=== PATIENT | female | born 1990 | race Caucasian/White ===

== ENCOUNTER 2024-11-09 08:16 | Emergency (ER) | payer OTHER, SELFPAY ==
[2024-11-09 08:17] VITALS: BMI 48.2
[2024-11-09 08:30] VITALS: BP 146/104; PULSE 115; RESP 18; TEMP 37.4; O2SAT 97
--- NOTE | 2024-11-09 08:30 | XR_ITS ---
Examination: CT lumbar spine, without contrast. 2-D sagittal reconstructions. 2-D coronal reconstructions. 3-D reconstructions. Date and time of exam:November 09, 2024 1018 hrs. Indications: Lower back pain radiating to the left leg beginning 3 months ago CTDI: vol (mGy):72.3 DLP: (mGycm):2407 Technique: Multiple 1.25 mm axial sections of the lumbar spine without intravenous contrast have been obtained. 2-D sagittal and coronal reconstructions have been obtained. 3-D reconstructions have been obtained. Low dose protocols were performed. One or more of the following dose reduction techniques were used; automated exposure control, adjustment of the mA and/or KV according to patient size, use of iterative reconstruction technique. Findings: Adequate alignment lumbar vertebral bodies No lumbar fracture No spondylolisthesis Moderate to advanced disc narrowing L5-S1 L5-S1 no disc protrusion L4-L5 large, 10 mm central left paracentral disc bulge severely indenting the thecal sac and markedly displacing the left L5 nerve root More cephalad levels unremarkable Impression: L4-L5 large, 10 mm, central left paracentral disc bulge severely indenting the thecal sac and markedly displacing the left L5 nerve root
[2024-11-09] MEDS: KETOROLAC INJ 30 MG/ML VIAL IM (08:43)
[2024-11-09] MEDS: DIAZEPAM 5 MG TABLET 10 MG PO (08:43)
[2024-11-09 09:53] LABS: HCG Qualitative,Urine Negative
--- NOTE | 2024-11-09 11:17 | EDNOTE_ITS ---
ED Back Injury Pain RME/HPI General Chief Complaint: Back Pain/Injury Stated Complaint: LOWER BACK PAIN Time Seen by Provider: 11/09/24 08:18 Arrival date/time: 11/09/24 08:16 34-year-old female presents with complaints of acute on chronic back pain patient reports that she has pain left side of her back mostly radiating down her left leg. Patient ports no saddle anesthesia no loss of bowel or bladder Limitations: no limitations Related Data Previous Rx's ?Medication ?Instructions ?Recorded cyclobenzaprine 10 mg tablet 10 mg PO TID PRN muscle s pasm 10 11/09/24 days #30 tab-caps ibuprofen 800 mg tablet 800 mg PO TID PRN pain #30 t abs 11/09/24 Allergies Allergy/AdvReac Type Severity Reaction Status Date / Time No Known Allergies Allergy Verified 11/09/24 08:17 Review of Systems Review of Systems Systems Reviewed: All systems reviewed, normal except as documented Constitutional Constitutional: Reports system reviewed and no additional complaints, except as documented, Denies fever(s) and Denies headache(s) Eyes Eyes: Reports system reviewed and no additional complaints, except as documented and Denies blurry vision ENT Ears, Nose, Mouth, and Throat: Reports system reviewed and no additional complaints, except as documented, Denies headache(s), Denies nasal congestion and Denies nasal discharge Cardiovascular Cardiovascular: Reports system reviewed and no additional complaints, except as documented, Denies chest pain and Denies dyspnea Respiratory Respiratory: Reports system reviewed and no additional complaints, except as documented, Denies chest congestion, Denies cough and Denies dyspnea Gastrointestinal Gastrointestinal: Reports system reviewed and no additional complaints, except as documented and Denies abdominal pain Musculoskeletal Musculoskeletal: Reports system reviewed and no additional complaints, except as documented, Reports back pain, Denies numbness, Reports radiating pain into limb, Denies stiffness and Denies tingling Integumentary/Breasts Skin/Breast: Reports system reviewed and no additional complaints, except as documented and Denies rash Neurologic Neurologic: Reports system reviewed and no additional complaints, except as documented, Reports as per HPI, Denies headache(s), Denies numbness and Denies tingling Past Medical History Social History SMOKING STATUS: Never smoker ED Exam General Limitations: Present no limitations General appearance: Present alert and in no apparent distress Head Head exam: Present atraumatic Eye Eye exam: Present normal appearance, PERRL and EOMI; Absent conjunctival injection ENT ENT exam: Present normal exam, normal oropharynx and mucous membranes moist Neck Neck exam: Present normal inspection, full ROM and trachea midline Chest Chest inspection: Present normal inspection and symmetric chest wall rise Respiratory Respiratory exam: Present normal lung sounds bilaterally Cardiovascular Cardiovascular exam: Present regular rate, normal rhythm and normal heart sounds Abdominal Exam Abdominal exam: Present soft and normal bowel sounds; Absent distention, tenderness, guarding, rebound or rigidity Extremities Exam Extremities exam: Present normal inspection and full ROM Back Exam Back exam: Present normal inspection, full ROM, tenderness, muscle spasm and paraspinal tenderness; Absent CVA tenderness (R) or CVA tenderness (L) Neurological Exam Neurological exam: Present alert, oriented X3 and CN II-XII intact Psychiatric Psychiatric exam: Present normal affect and normal mood Skin Skin exam: Present warm, dry, intact and normal color Course Quality Measures none Orders Category Date Time Status CT lumbar spine wo con Stat Exams 11/09/24 08:30 Completed HCG Qualitative,Urine Stat Lab 11/09/24 09:40 Completed Diazepam [Valium] Med 11/09/24 08:30 Discontinued 10 mg PO X1 ONE Ketorolac Inj [Toradol Inj] Med 11/09/24 08:30 Discontinued 30 mg IM X1 ONE Vital Signs Vital signs: Vital Signs Temperature 99.4 F 11/09/24 08:30 Pulse Rate 115 H 11/09/24 08:30 Respiratory Rate 18 11/09/24 08:30 Blood Pressure 146/104 H 11/09/24 08:30 Pulse Oximetry (%) 97 11/09/24 08:30 Oxygen Delivery Method Room Air 11/09/24 08:30 o2 satv 97% r.a wnl Back Pain / Injury MDM Narrative MDM Narrative:: 34-year-old female presents with complaints of acute on chronic back pain patient reports that she has pain left side of her back mostly radiating down her left leg. Patient ports no saddle anesthesia no loss of bowel or bladder On exam patient well-appearing patient does not appear ill or toxic in no acute distress Imaging and lab work obtained patient was given a copy of her CT report and we discussed the findings. Explained to the patient she is to have an outpatient MRI and referral to specialist patient states understanding I explained to the patient if she develops severe numbness tingling or any worsening of symptoms to return immediately for further evaluation patient states understanding Patient has no abnormal neurological findings patient walks with steady gait Patient data External records reviewed:: [facility] previous records Clinical information provided by:: patient Social determinants that could affect healthcare access:: none Patient has the following chronic illnesses:: None How is presenting disease/condition affected by chronic disease/condition?: no chronic disease Evaluation data The following diagnostics were reviewed and interpreted by me:: lab results and radiology exam(s) Lab and/or radiology exams considered but not ordered:: Labs radiology obtain Interpretation Summary: Reviewed by me Medications / Prescriptions Medications or Prescriptions considered but not ordered:: Given Medication administrations:: Medication Administration History Discontinued Medications Diazepam (Diazepam 5 Mg Tablet) 10 mg PO X1 ONE Stop: 11/09/24 08:31 Last Admin: 11/09/24 08:43 Dose: 10 mg Documented By: DO Ketorolac Tromethamine (Ketorolac Inj 30 Mg/Ml Vial) 30 mg IM X1 ONE Stop: 11/09/24 08:31 Last Admin: 11/09/24 08:43 Dose: 30 mg Documented By: DO Given Consultations Consultation(s) initiated? (list below): No Diagnosis Differential diagnosis back pain/injury: lumbar radiculopathy, sciatica and strain of lumbar region Most likely diagnosis given after review of the tests above:: Back pain Admission Indicated Admission indicated?: not indicated Admission Request Was there a request for admission?: No Disposition Plan Disposition Plan: Discharge Discharge Attestation Discharge Attestation: The patient and all family members were given an opportunity to ask questions and understood the discharge instructions. Discharge instructions specifically effects, indications for sooner follow up or return to the emergency department, and the expected course of current diagnosis. Patient condition: Stable Discharge Plan Plan Patient Disposition: HOME (Self Care) Discharge Disposition comment: Stable Prescriptions/Referrals Prescriptions/Med Rec: New cyclobenzaprine 10 mg tablet 10 mg PO TID PRN (Reason: muscle spasm) 10 Days Qty: 30 0RF ibuprofen 800 mg tablet 800 mg PO TID PRN (Reason: pain) Qty: 30 0RF Referrals: Bandar Kemp([facility])MD [Primary Care Provider] - 11/10/24 Problem List Clinical Impression: Strain of lumbar region, Bulging lumbar disc Patient/Caregiver Discharge Instructions Education Materials: Self Care Back Day Additional Instructions: Please follow up with your primary care doctor in the next 24-48hrs for any worsening symptoms return here immediately Print Language: Upper Sorbian Stand Alone Forms: [employer] Award Info., Work/School Release, Patient Portal Info Letter PA/COMPENSATION AND BENEFITS MANAGER Supervising Physician PA/COMPENSATION AND BENEFITS MANAGER Supervising Physician: Dr. [email or web address]
== END 2024-11-09 11:25 | disposition home or self-care (01) ==
PROVIDERS: Nurse Practitioner Primary Care; Emergency Provider Family Medicine; PCP Family Medicine
DX: M51.360 Other intervertebral disc degeneration, lumbar region with discogenic back pain only (principal); S39.012A Strain of muscle, fascia and tendon of lower back, initial encounter
CPT/HCPCS: 72131; 81025; 96372; 99284; J1885; A9270

== ENCOUNTER → 2024-12-16 | Outpatient (CLI) | payer OTHER, SELFPAY ==
--- NOTE | 2024-12-16 12:30 | XR_ITS ---
Examination: MRI lumbar spine without contrast Date and time of exam: December 16, 2024 1304 hours INDICATIONS: Left-sided lower back pain beginning 6 months ago. Technique: Multiple MRI axial and sagittal sections lumbar spine. Sagittal T2-weighted images, TR 3500, TE 118 T1 weighted transverse sections, TR 688 T8.5, T2-weighted sagittal sections T1 weighted sagittal sections TR 621, TE 30 T2 axial sections, TR 4, 190, TE 84. Findings: Adequate alignment lumbar vertebral bodies No lumbar fracture Moderate disc narrowing L5-S1 with reactive bony endplate change L5-S1 no disc protrusion L4-L5 large, 7 mm central left paracentral disc bulge displacing the left L5 nerve root More cephalad levels unremarkable IMPRESSION: L4-L5 large, 7 mm, central left paracentral disc bulge displacing the left L5 nerve root
== END | disposition home or self-care (01) ==
PROVIDERS: PCP Nurse Practitioner; Referring Provider Nurse Practitioner; Visit Provider Nurse Practitioner
DX: M51.16 Intervertebral disc disorders with radiculopathy, lumbar region (principal)
CPT/HCPCS: 72148